=== PATIENT | female | born 1980 | race Caucasian/White ===

== ENCOUNTER 2019-11-06 08:13 | Emergency (ER) | payer BC ==
[2019-11-06] MEDS ORDERED: Dexamethasone 10 MG/ML SDV IM ONE (08:27)
--- NOTE | 2019-11-06 09:22 | EDM.PDOC ---
ED HPI GENERAL MEDICAL PROBLEM - General Chief Complaint: Skin Complaint Stated Complaint: HIVES Time Seen by Provider: 11/06/19 09:18 Source of Information: Reports: Patient History Limitations: Reports: No Limitations - History of Present Illness INITIAL COMMENTS - FREE TEXT/NARRATIVE: Is 39-year-old female no past medical history presenting with a chief complaint of rash. The rash is generalized and located on her arms and legs. The rash is itchy and started yesterday. The rash is noted to improve a little bit with Benadryl. The rash is associated with viral upper respiratory symptoms including sore throat and nasal congestion. Patient has no new exposures that can be associated with rash. Patient denies any recent history of travel. Patient denies any easy bleeding. - Related Data Allergies Allergy/AdvReac Type Severity Reaction Status Date / Time bran Allergy Other Verified 11/06/19 08:24 erythromycin base Allergy Other Verified 11/06/19 08:24 Home Meds: Home Meds Multivitamin [Multi-Vitamin Daily] 1 tab PO DAILY 11/06/19 [History] Past Medical History - Past Health History Medical/Surgical History: Denies Medical/Surgical History - Past Surgical History HEENT Surgical History: Reports: Tonsillectomy GI Surgical History: Reports: Appendectomy Female Surgical History: Reports: Section Social & Family History - Family History Family Medical History: Noncontributory - Tobacco Use Smoking Status *Q: Never Smoker - Recreational Drug Use Recreational Drug Use: No ED ROS GENERAL - Review of Systems Review Of Systems: See Below Free Text/Narrative/Comment: In addition to that documented in the HPI above, the additional ROS was obtained : Constitutional: Denies fevers or chills Eyes: Denies vision changes ENMT: Per HPI CV: Denies chest pain Resp: Denies SOB GI: Denies vomiting or diarrhea : Denies painful urination MSK: Denies recent trauma Skin: Per HPI Neuro: Denies new numbness or tingling or weakness Endocrine: Denies unexpected weight loss Heme: Denies bleeding disorders ED EXAM, SKIN/RASH Exam: See Below Text/Narrative:: I have reviewed the triage vital signs Const: Well nourished, well developed, appears stated age Eyes: PERRL, no conjunctival injection HENT: NCAT, Neck supple without meningismus CV: RRR, Warm, well-perfused extremities RESP: CTAB, Unlabored respiratory effort GI: soft, non-tender, non-distended, no masses MSK: No gross deformities appreciated Skin: Generalized rash to the extremities sandpaperlike. No pustules. No urticaria. No peeling. No purpura Neuro: Alert, packing house laborer II-XII grossly intact. Sensation and motor function of extremities grossly intact. Psych: Appropriate mood and affect Exam Limited By: No Limitations Course - Vital Signs Last Recorded V/S: Last Vital Signs Temp 36.7 C 11/06/19 08:22 Pulse 66 11/06/19 08:22 Resp 18 11/06/19 08:22 BP 182/105 H 11/06/19 08:22 Pulse Ox 98 11/06/19 08:22 - Orders/Labs/Meds Orders: Active Orders 24 hr Category Date Time Status CULTURE STREP A CONFIRMATION [RM] Stat Lab 11/06/19 08:35 Results STREP SCRN A RAPID W CULT CONF [] Stat Lab 11/06/19 08:35 Results Meds: Medications Discontinued Medications Generic Name Dose Route Start Last Admin Trade Name Popeye PRN Reason Stop Dose Admin Dexamethasone 8 mg 11/06/19 08:27 11/06/19 08:33 Dexamethasone IM 11/06/19 08:28 8 mg ONETIME ONE Administration Departure - Departure Time of Disposition: 09:20 Disposition: Home, Self-Care 01 Condition: Good Clinical Impression: Viral syndrome - Discharge Information Instructions: Viral Respiratory Infection, [id number] Referrals: PCP,Unobtain [Primary Care Provider] - Sepsis Event Note - Evaluation Sepsis Screening Result: No Definite Risk - Focused Exam Vital Signs: Vital Signs Temp Pulse Resp BP Pulse Ox 11/06/19 08:22 36.7 C 66 18 182/105 H 98 Date Exam was Performed: 11/06/19 Time Exam was Performed: 09:17 - My Orders Last 24 Hours: My Active Orders 11/06/19 08:35 CULTURE STREP A CONFIRMATION [RM] Stat STREP SCRN A RAPID W CULT CONF [RM] Stat - Assessment/Plan Last 24 Hours: My Active Orders 11/06/19 08:35 CULTURE STREP A CONFIRMATION [RM] Stat STREP SCRN A RAPID W CULT CONF [RM] Stat Assessment:: Pt was discharged home/self-care. Likely diagnosis is a virus. Strep test is negative. No evidence of Ling-Jhon syndrome, toxic shock syndrome. Emergent infectious rash. Follow-up care recommended Pt was discharged with the following prescriptions: Benadryl. Pt was provided written discharge instructions. Additional verbal instructions were given and discussed with Pt including, but not limited to, strep symptoms, worsening rash.. Pt was asked to return to the ED immediately for any new or concerning or if they worsen. Pt was in agreement, endorsed understanding, and questions were answered. Pt instructed to follow-up with _primary care physician in 2 to 3 days days.
== END 2019-11-06 09:32 | disposition home or self-care (01) ==
LOC: MW.ED 08:13
DX: B34.9 Viral infection, unspecified (principal); Z88.1 Allergy status to other antibiotic agents; Z98.890 Other specified postprocedural states; Z90.49 Acquired absence of other specified parts of digestive tract; Z88.8 Allergy status to other drugs, medicaments and biological substances
CPT/HCPCS: 87081; 87880; 96372; 99283; J1100